=== PATIENT | female | born 1980 | race Caucasian/White ===

== ENCOUNTER 2019-11-06 14:17 | Emergency (ER) | payer OTHER ==
[~2019-11-06] VITALS: Ht 170.2 cm; Wt 61.0 kg
[~2019-11-06 14:17] MED LIST: NO HOME MEDS
[2019-11-06 14:33] VITALS: BP 123/73
[2019-11-06] MEDS ORDERED: ketorolac tromethamine 15mg/ml inj. IM ONE (15:10)
[2019-11-06 15:31] LABS: URINE HCG NEGATIVE (NEG)
[2019-11-06 15:40] LABS: BASOPHILS % (AUTO) 0.4 % (0-1); EOSINOPHILS # (AUTO) 0.1 X10'3 (0-0.9); EOSINOPHILS % (AUTO) 1.1 % (0-6); HEMATOCRIT 42.2 % (35.0-45.0); HEMOGLOBIN 14.2 g/dl (12.0-16.0); LYMPHOCYTES # (AUTO) 2.3 X10'3 (1.1-4.8); MEAN CORPUSCULAR HEMOGLOBIN 31.2 PG (27.0-31.0); MEAN CORPUSCULAR HGB CONC 33.6 g/dL (33.0-36.5); MEAN CORPUSCULAR VOLUME 92.9 FL (78-98); MEAN PLATELET VOLUME 9.1 FL (7.4-10.4); MONOCYTES # (AUTO) 0.4 X10'3 (0-0.9); MONOCYTES % (AUTO) 4.5 % (2-12); NEUTROPHILS # (AUTO) 5.8 X10'3 (1.8-7.7); PLATELET COUNT 235 X10'3 (140-440); RED BLOOD COUNT 4.55 X10'6 (4.20-5.60); RED CELL DISTRIBUTION WIDTH 13.1 % (11.5-14.5); WHITE BLOOD COUNT 8.6 X10'3 (4.5-11.0)
[2019-11-06 15:43] LABS: CLARITY,URINE CLEAR (Clear); COLOR,URINE YELLOW (Yellow); GLUCOSE, URINE NEGATIVE (Neg); KETONES,URINE NEGATIVE (Neg); LEUKOCYTE ESTERASE ,URINE NEGATIVE (Neg); NITRITES, URINE NEGATIVE (Neg); OCCULT BLOOD,URINE NEGATIVE (Neg); PROTEIN,URINE NEGATIVE (Neg); UROBILINOGEN,URINE 0.2 E.U/dL (0.2-1.0)
[2019-11-06 15:45] LABS: UA COLLECTION TYPE VOIDED
[2019-11-06 15:49] LABS: ALANINE AMINOTRANSFERASE 25 U/L (12-78); ALBUMIN 4.1 G/DL (3.4-5.0); ALBUMIN/GLOBULIN RATIO 1.5 (1.1-1.5); ALKALINE PHOSPHATASE 63 IU/L (46-116); ANION GAP 10 (8-16); ASPARTATE AMINO TRANSFERASE 21 U/L (10-37); BILIRUBIN,TOTAL 0.8 MG/DL (0.1-1.0); BLOOD UREA NITROGEN 10 MG/DL (7-18); BUN/CREATININE RATIO 15.4 (6.6-38.0); CALCIUM 8.8 MG/DL (8.5-10.1); CHLORIDE 105 MMOL/L (99-107); CREATININE 0.65 MG/DL (0.40-0.90); GLUCOSE 91 MG/DL (70-104); POTASSIUM 3.4 MMOL/L (3.5-5.1); SODIUM 143 MMOL/L (135-145); TOTAL CARBON DIOXIDE 28.3 MMOL/L (24-32); TOTAL PROTEIN 6.9 G/DL (6.4-8.2); eGFR > 90 ML/MIN
== END 2019-11-06 16:51 | disposition home or self-care (01) ==
LOC: MERGE 14:18 → ER 14:18
DX: N83.202 Unspecified ovarian cyst, left side (principal); F17.200 Nicotine dependence, unspecified, uncomplicated; Z90.710 Acquired absence of both cervix and uterus; Z88.2 Allergy status to sulfonamides
CPT/HCPCS: 36415; 76830; 76856; 80053; 81003; 81025; 85025; 96372; 99284; J1885

== ENCOUNTER 2020-08-17 12:26 | Inpatient (IN) | payer OTHER ==
[~2020-08-17] VITALS: Ht 170.2 cm; Wt 54.1 kg
[2020-08-17] MEDS ORDERED: acetylcysteine 200 MG/ml 4ml vial PO ONE (12:55)
[2020-08-17] MEDS ORDERED: ondansetron/PF 4mg/2ml inj IV ONE (13:00)
[2020-08-17] MEDS ORDERED: normal saline 1000ml 1,000 ML IV ONE (13:00)
[2020-08-17] MEDS ORDERED: proCHLORperazine 10 MG/2 ml inj IV ONE (13:10)
[2020-08-17] MEDS ORDERED: sodium bicarbonate (8.4%) 1 mEq/ml syringe IV ONE (13:10)
[2020-08-17 13:15] LABS: BASOPHILS % (AUTO) 0.6 % (0-1); EOSINOPHILS % (AUTO) 0.4 % (0-6); HEMATOCRIT 45.3 % (35.0-45.0); HEMOGLOBIN 15.1 g/dl (12.0-16.0); MEAN CORPUSCULAR HGB CONC 33.5 g/dL (33.0-36.5); MEAN CORPUSCULAR VOLUME 92.7 FL (78-98); MONOCYTES # (AUTO) 0.5 X10'3 (0-0.9); MONOCYTES % (AUTO) 5.4 % (2-12); NEUTROPHILS # (AUTO) 6.1 X10'3 (1.8-7.7); NEUTROPHILS % (AUTO) 70.6 % (42-75); PLATELET COUNT 263 X10'3 (140-440); RED BLOOD COUNT 4.88 X10'6 (4.20-5.60); RED CELL DISTRIBUTION WIDTH 13.7 % (11.5-14.5); WHITE BLOOD COUNT 8.7 X10'3 (4.5-11.0)
[2020-08-17] MEDS ORDERED: ACETYLCYSTEINE IV ONE ×4 (13:30→19:15)
[2020-08-17] MEDS ORDERED: DEXTROSE 5% IV ONE ×4 (13:30→19:15)
[2020-08-17] MEDS ORDERED: WATER IV ONE ×4 (13:30→19:15)
[2020-08-17 13:31] LABS: ALANINE AMINOTRANSFERASE 22 U/L (12-78); ALBUMIN 4.8 G/DL (3.4-5.0); ALBUMIN/GLOBULIN RATIO 1.7 (1.1-1.5); ALKALINE PHOSPHATASE 60 IU/L (46-116); ANION GAP 14 (8-16); ASPARTATE AMINO TRANSFERASE 17 U/L (10-37); BILIRUBIN,TOTAL 1.7 MG/DL (0.1-1.0); BLOOD UREA NITROGEN 15 MG/DL (7-18); BUN/CREATININE RATIO 17.9 (6.6-38.0); CHLORIDE 106 MMOL/L (99-107); CREATININE 0.84 MG/DL (0.40-0.90); GLUCOSE 185 MG/DL (70-104); POTASSIUM 3.2 MMOL/L (3.5-5.1); SODIUM 141 MMOL/L (135-145); TOTAL CARBON DIOXIDE 20.8 MMOL/L (24-32); TOTAL PROTEIN 7.7 G/DL (6.4-8.2); eGFR 75 ML/MIN
[2020-08-17 13:41] LABS: ETHANOL < 0.010 GM/DL (0.0-0.010)
[2020-08-17 13:43] LABS: ACETAMINOPHEN 211.7 UG/ML (10-30)
--- NOTE | 2020-08-17 13:46 | NUR ---
Spoke with poison control- [place] bi-carb for QRS prolong Give mucomyst at 1 hour, 4 hour and 16 hour. If patient starts to have tremors or seizure administer benzodiazepines
[2020-08-17] MEDS ORDERED: HYDR-3972 PO (14:53)
--- NOTE | 2020-08-17 14:58 | NUR ---
PT TOLD THIS RN SHE TOOK BENADRYL PM, TYLENOL, AND NORCO AT 0930 IN ATTEMPT TO KILL HERSELF "THINGS HAVE BEEN REALLY HARD LATELY."
[2020-08-17] MEDS ORDERED: mag hydrox/Alum hydrox/simeth 30ml oral suspension PO PRN (15:15)
[2020-08-17] MEDS ORDERED: magnesium hydroxide 30ml (MOM) UD suspension PO PRN (15:15)
[2020-08-17] MEDS ORDERED: ondansetron/PF 4mg/2ml inj IV PRN (15:15)
[2020-08-17] MEDS ORDERED: ipratropium/albuterol 3ml nebule NEB PRN (15:15)
[2020-08-17] MEDS ORDERED: acetaminophen 325mg tablet PO PRN (15:15)
[2020-08-17] MEDS ORDERED: magnesium 2GM in 50ml NS 50 ML IV PRN (15:15)
[2020-08-17] MEDS ORDERED: potassium Cl 40MEQ/1/2NS 520ml 520 ML IV PRN ×2 (15:15)
[2020-08-17] MEDS ORDERED: magnesium 4gm in 100ml NS 100 ML IV PRN (15:15)
[2020-08-17] MEDS ORDERED: potassium Cl 20 mEq SR tablet PO PRN (15:15)
[2020-08-17] MEDS: normal saline 1000ml 1,000 ML IV SCH ×2 (15:15→21:36)
--- NOTE | 2020-08-17 15:15 | NUR ---
Spoke again w/ Poison control recommends replacing Mg and K for prolonged QTC. Dr. Reza notified of this now, we will get another EKG and then "replace per the protocol from the ICU doctor."
[2020-08-17 15:34] LABS: URINE HCG NEGATIVE (NEG)
--- NOTE | 2020-08-17 15:34 | NUR ---
Pt is awake and alert, second EKG done, QT 499
[2020-08-17 15:37] LABS: COLOR,URINE YELLOW (Yellow); GLUCOSE, URINE NEGATIVE (Neg); KETONES,URINE >=80 mg/dl (Neg); LEUKOCYTE ESTERASE ,URINE NEGATIVE (Neg); NITRITES, URINE NEGATIVE (Neg); OCCULT BLOOD,URINE NEGATIVE (Neg); PH,URINE 6.5 (4.8-8.0); PROTEIN,URINE TRACE mg/dl (Neg); UROBILINOGEN,URINE 0.2 E.U/dL (0.2-1.0)
[2020-08-17 15:39] LABS: UA COLLECTION TYPE CLN CATCH MIDSTREAM
[2020-08-17 15:40] LABS: URINE AMPHETAMINE SCREEN NEGATIVE (Neg); URINE BARBITUATE SCREEN NEGATIVE (Neg); URINE BENZODIAZEPINES SCREEN NEGATIVE (Neg); URINE CANNABINOID SCREEN POSITIVE (Neg); URINE COCAINE SCREEN NEGATIVE (Neg); URINE METHADONE SCREEN NEGATIVE (Neg); URINE OPIATE SCREEN POSITIVE (Neg); URINE PHENCYCLIDINE SCREEN NEGATIVE (Neg)
[2020-08-17 15:43] LABS: CLARITY,URINE SLIGHTLY CLOUDY (Clear)
[2020-08-17 15:44] LABS: BACTERIA,URINE 2+ /HPF (Neg); RBC,URINE 0-2 /HPF (0-2); SQUAMOUS EPITHELIAL CELL,UR MANY /LPF (FEW); WBC,URINE 0-4 /HPF (0-4)
--- NOTE | 2020-08-17 16:13 | NUR ---
RED INCONTINENCE MOISTURE ENTIRE PERINEUM AND UNDER RIGHT BREAST.
--- NOTE | 2020-08-17 17:03 | NUR ---
Patient in room ED 1. I have received report from Lynnette GLASS and had the opportunity to ask questions and assume patient care.
--- NOTE | 2020-08-17 17:08 | NUR ---
TELEPHONE REPORT TO QUAN ARCE ON PCU. PATIENT PREPARING FOR TRANSFER TO FLOOR WITH SITTER AT THE BEDSIDE.
[2020-08-17 18:00] VITALS: BP 119/76
[2020-08-17 18:18] LABS: ALANINE AMINOTRANSFERASE 21 U/L (12-78); ALBUMIN/GLOBULIN RATIO 1.4 (1.1-1.5); ALKALINE PHOSPHATASE 54 IU/L (46-116); ANION GAP 15 (8-16); ASPARTATE AMINO TRANSFERASE 19 U/L (10-37); BILIRUBIN,TOTAL 1.4 MG/DL (0.1-1.0); BLOOD UREA NITROGEN 13 MG/DL (7-18); BUN/CREATININE RATIO 19.1 (6.6-38.0); CALCIUM 7.8 MG/DL (8.5-10.1); CHLORIDE 108 MMOL/L (99-107); CREATININE 0.68 MG/DL (0.40-0.90); GLUCOSE 112 MG/DL (70-104); POTASSIUM 3.7 MMOL/L (3.5-5.1); SODIUM 144 MMOL/L (135-145); TOTAL CARBON DIOXIDE 21.2 MMOL/L (24-32); TOTAL PROTEIN 6.9 G/DL (6.4-8.2); eGFR > 90 ML/MIN
[2020-08-17 18:27] LABS: ACETAMINOPHEN 101.6 UG/ML (10-30)
--- NOTE | 2020-08-17 18:42 | NUR ---
Patient in room PCU 3027. I have received report from Erin GLASS and had the opportunity to ask questions and assume patient care.
--- NOTE | 2020-08-17 18:45 | NUR ---
Problems reprioritized. Patient report given, questions answered & plan of care reviewed with Kenisha GLASS.
--- NOTE | 2020-08-17 18:51 | NUR ---
PAGER ID: [phone] MESSAGE: Stacia Skinner RM [id number] Critical Acetaminophen level of 101.6 but down from previous level 211.7. Also can we order another salicylate level, AST, ALT, INR, & Acetaminophen level prior to the end of last Acetylcysteien dose? Kenisha 1326
--- NOTE | 2020-08-17 18:59 | NUR ---
Patient in room PCU 3027. I have received report from Israel GLASS and had the opportunity to ask questions and assume patient care.
[2020-08-17] MEDS: K and/or MAG REPLACEMENT MC SCH (20:00)
[2020-08-17 22:00] VITALS: BP 128/76
[2020-08-17 22:11] LABS: ALANINE AMINOTRANSFERASE 19 U/L (12-78); ALBUMIN 3.6 G/DL (3.4-5.0); ALBUMIN/GLOBULIN RATIO 1.5 (1.1-1.5); ALKALINE PHOSPHATASE 48 IU/L (46-116); ANION GAP 11 (8-16); ASPARTATE AMINO TRANSFERASE 16 U/L (10-37); BILIRUBIN,TOTAL 1.5 MG/DL (0.1-1.0); BLOOD UREA NITROGEN 11 MG/DL (7-18); BUN/CREATININE RATIO 18.3 (6.6-38.0); CALCIUM 7.7 MG/DL (8.5-10.1); CHLORIDE 108 MMOL/L (99-107); GLUCOSE 99 MG/DL (70-104); POTASSIUM 3.4 MMOL/L (3.5-5.1); SODIUM 141 MMOL/L (135-145); TOTAL CARBON DIOXIDE 22.5 MMOL/L (24-32); eGFR > 90 ML/MIN
[2020-08-17 22:31] LABS: ACETAMINOPHEN 128.4 UG/ML (10-30)
[2020-08-17] MEDS: potassium Cl 20 mEq SR tablet PO PRN (22:31)
--- NOTE | 2020-08-17 22:37 | NUR ---
promotional table spacer PAGER ID: [phone] MESSAGE: Patient Stacia Russell RM [id number] Patient has critical Acetaminophen level of 128.4. Her last level was 101.6. She is currently on a Acetylcysteine drip. Thank you! Kenisha GLASS ext. [phone]
[2020-08-18 01:51] LABS: ALANINE AMINOTRANSFERASE 19 U/L (12-78); ALBUMIN 3.3 G/DL (3.4-5.0); ALBUMIN/GLOBULIN RATIO 1.4 (1.1-1.5); ALKALINE PHOSPHATASE 45 IU/L (46-116); ANION GAP 11 (8-16); ASPARTATE AMINO TRANSFERASE 18 U/L (10-37); BILIRUBIN,TOTAL 1.5 MG/DL (0.1-1.0); BLOOD UREA NITROGEN 8 MG/DL (7-18); BUN/CREATININE RATIO 12.1 (6.6-38.0); CALCIUM 8.2 MG/DL (8.5-10.1); CHLORIDE 109 MMOL/L (99-107); CREATININE 0.66 MG/DL (0.40-0.90); GLUCOSE 86 MG/DL (70-104); SODIUM 141 MMOL/L (135-145); TOTAL CARBON DIOXIDE 21.4 MMOL/L (24-32); TOTAL PROTEIN 5.6 G/DL (6.4-8.2); eGFR > 90 ML/MIN
[2020-08-18 01:57] LABS: POTASSIUM 3.1 MMOL/L (3.5-5.1)
[2020-08-18 02:00] VITALS: BP 119/76
[2020-08-18 02:06] LABS: ACETAMINOPHEN 51.3 UG/ML (10-30)
[2020-08-18] MEDS: potassium Cl 20 mEq SR tablet PO PRN (02:15)
--- NOTE | 2020-08-18 03:46 | NUR ---
[place] documentation: I have reviewed and agree with all interventions, assessments performed and documented by Lucia GLASS. [place] Medication Administration: For this medication-pass time frame, all medication were reviewed, dispensed, administered and documented per hospital policy by Lucia GLASS.
[2020-08-18 05:57] LABS: BASOPHILS % (AUTO) 0.5 % (0-1); EOSINOPHILS % (AUTO) 0.5 % (0-6); HEMATOCRIT 36.5 % (35.0-45.0); HEMOGLOBIN 12.4 g/dl (12.0-16.0); LYMPHOCYTES # (AUTO) 2.9 X10'3 (1.1-4.8); LYMPHOCYTES % (AUTO) 30.6 % (21-51); MEAN CORPUSCULAR HEMOGLOBIN 31.5 PG (27.0-31.0); MEAN CORPUSCULAR VOLUME 92.5 FL (78-98); MEAN PLATELET VOLUME 9.2 FL (7.4-10.4); MONOCYTES # (AUTO) 0.4 X10'3 (0-0.9); MONOCYTES % (AUTO) 3.8 % (2-12); NEUTROPHILS # (AUTO) 6.2 X10'3 (1.8-7.7); NEUTROPHILS % (AUTO) 64.6 % (42-75); PLATELET COUNT 184 X10'3 (140-440); RED BLOOD COUNT 3.94 X10'6 (4.20-5.60); RED CELL DISTRIBUTION WIDTH 13.7 % (11.5-14.5); WHITE BLOOD COUNT 9.6 X10'3 (4.5-11.0)
[2020-08-18 06:06] LABS: ACETAMINOPHEN 13.1 UG/ML (10-30); ALANINE AMINOTRANSFERASE 17 U/L (12-78); ALBUMIN 3.2 G/DL (3.4-5.0); ALBUMIN/GLOBULIN RATIO 1.4 (1.1-1.5); ALKALINE PHOSPHATASE 43 IU/L (46-116); ANION GAP 8 (8-16); ASPARTATE AMINO TRANSFERASE 13 U/L (10-37); BILIRUBIN,TOTAL 1.6 MG/DL (0.1-1.0); BLOOD UREA NITROGEN 8 MG/DL (7-18); BUN/CREATININE RATIO 11.9 (6.6-38.0); CALCIUM 7.7 MG/DL (8.5-10.1); CHLORIDE 110 MMOL/L (99-107); CREATININE 0.67 MG/DL (0.40-0.90); GLUCOSE 88 MG/DL (70-104); MAGNESIUM 1.8 MG/DL (1.5-2.4); POTASSIUM 3.5 MMOL/L (3.5-5.1); SODIUM 140 MMOL/L (135-145); TOTAL CARBON DIOXIDE 22.2 MMOL/L (24-32); TOTAL PROTEIN 5.5 G/DL (6.4-8.2); eGFR > 90 ML/MIN
--- NOTE | 2020-08-18 06:14 | NUR ---
Problems reprioritized. Patient report given, questions answered & plan of care reviewed with Erin GLASS.
--- NOTE | 2020-08-18 06:29 | NUR ---
Patient in room PCU 3027. I have received report from Kenisha GLASS and Lucia GLASS and had the opportunity to ask questions and assume patient care.
[2020-08-18 07:00] VITALS: BP 94/55
[2020-08-18] MEDS: K and/or MAG REPLACEMENT MC SCH (08:00)
[2020-08-18 10:17] LABS: ACETAMINOPHEN 3.5 UG/ML (10-30); ALANINE AMINOTRANSFERASE 18 U/L (12-78); ALBUMIN 3.2 G/DL (3.4-5.0); ALBUMIN/GLOBULIN RATIO 1.5 (1.1-1.5); ALKALINE PHOSPHATASE 42 IU/L (46-116); ANION GAP 8 (8-16); ASPARTATE AMINO TRANSFERASE 13 U/L (10-37); BILIRUBIN,TOTAL 1.7 MG/DL (0.1-1.0); BLOOD UREA NITROGEN 6 MG/DL (7-18); BUN/CREATININE RATIO 8.6 (6.6-38.0); CALCIUM 7.9 MG/DL (8.5-10.1); CHLORIDE 112 MMOL/L (99-107); GLUCOSE 88 MG/DL (70-104); POTASSIUM 3.9 MMOL/L (3.5-5.1); SODIUM 142 MMOL/L (135-145); TOTAL CARBON DIOXIDE 21.7 MMOL/L (24-32); TOTAL PROTEIN 5.4 G/DL (6.4-8.2); eGFR > 90 ML/MIN
[2020-08-18 11:00] VITALS: BP 104/61
[2020-08-18 13:19] LABS: ALANINE AMINOTRANSFERASE 18 U/L (12-78); ALBUMIN 3.2 G/DL (3.4-5.0); ALBUMIN/GLOBULIN RATIO 1.4 (1.1-1.5); ALKALINE PHOSPHATASE 43 IU/L (46-116); ANION GAP 2 (8-16); ASPARTATE AMINO TRANSFERASE 15 U/L (10-37); BILIRUBIN,TOTAL 1.9 MG/DL (0.1-1.0); BLOOD UREA NITROGEN 6 MG/DL (7-18); BUN/CREATININE RATIO 9.1 (6.6-38.0); CALCIUM 8.2 MG/DL (8.5-10.1); CHLORIDE 110 MMOL/L (99-107); CREATININE 0.66 MG/DL (0.40-0.90); GLUCOSE 99 MG/DL (70-104); POTASSIUM 3.9 MMOL/L (3.5-5.1); SODIUM 135 MMOL/L (135-145); TOTAL CARBON DIOXIDE 23.3 MMOL/L (24-32); TOTAL PROTEIN 5.5 G/DL (6.4-8.2); eGFR > 90 ML/MIN
--- NOTE | 2020-08-18 14:55 | NUR ---
Patient stable for discharge per MD order. All discharge information and education reviewed with patient before signing necessary paperwork. No new Rx. All patient belongings packed up and sent with patient who was picked up by her mother out front.
== END 2020-08-18 14:50 | disposition home or self-care (01) | DRG 918 ==
LOC: ER 12:26 → ED HOLD 15:15 → PCU 3S 17:15
PROVIDERS: ADMIT Family Medicine; ATTEND Family Medicine
DX: T39.1X2A Poisoning by 4-Aminophenol derivatives, intentional self-harm, initial encounter (principal); R17 Unspecified jaundice; F32.9 Major depressive disorder, single episode, unspecified; F12.90 Cannabis use, unspecified, uncomplicated; G89.29 Other chronic pain; E87.6 Hypokalemia; T45.0X2A Poisoning by antiallergic and antiemetic drugs, intentional self-harm, initial encounter; F43.21 Adjustment disorder with depressed mood; F17.210 Nicotine dependence, cigarettes, uncomplicated; Y92.89 Other specified places as the place of occurrence of the external cause; Z90.710 Acquired absence of both cervix and uterus; Z98.891 History of uterine scar from previous surgery; Z88.2 Allergy status to sulfonamides; Z98.51 Tubal ligation status; Z79.899 Other long term (current) drug therapy; Z71.6 Tobacco abuse counseling
CPT/HCPCS: 36415; 80053; 80305; 80320; 80329; 81001; 81025; 83735; 84443; 85025; 85610; 87081; 93005; 94760; 96365; 96375; 99285; G0378; J0132; J0780; J2405; J7030; J7060; J7070

== ENCOUNTER 2021-01-03 10:27 | Emergency (ER) | payer OTHER ==
[~2021-01-03] VITALS: Ht 170.2 cm; Wt 63.6 kg
[2021-01-03 10:57] LABS: BASOPHILS # (AUTO) 0.1 X10'3 (0-0.2); BASOPHILS % (AUTO) 0.8 % (0-1); EOSINOPHILS # (AUTO) 0.1 X10'3 (0-0.9); HEMATOCRIT 43.3 % (35.0-45.0); HEMOGLOBIN 14.7 g/dl (12.0-16.0); LYMPHOCYTES # (AUTO) 2.2 X10'3 (1.1-4.8); LYMPHOCYTES % (AUTO) 24.6 % (21-51); MEAN CORPUSCULAR HEMOGLOBIN 31.6 PG (27.0-31.0); MEAN CORPUSCULAR HGB CONC 33.8 g/dL (33.0-36.5); MEAN CORPUSCULAR VOLUME 93.4 FL (78-98); MEAN PLATELET VOLUME 8.3 FL (7.4-10.4); MONOCYTES # (AUTO) 0.4 X10'3 (0-0.9); MONOCYTES % (AUTO) 4.8 % (2-12); NEUTROPHILS # (AUTO) 6.2 X10'3 (1.8-7.7); NEUTROPHILS % (AUTO) 68.8 % (42-75); PLATELET COUNT 226 X10'3 (140-440); RED BLOOD COUNT 4.64 X10'6 (4.20-5.60); RED CELL DISTRIBUTION WIDTH 13.9 % (11.5-14.5)
[2021-01-03 11:09] LABS: ALANINE AMINOTRANSFERASE 39 U/L (12-78); ALBUMIN 4.2 G/DL (3.4-5.0); ALBUMIN/GLOBULIN RATIO 1.5 (1.1-1.5); ALKALINE PHOSPHATASE 66 IU/L (46-116); ANION GAP 9 (8-16); ASPARTATE AMINO TRANSFERASE 25 U/L (10-37); BLOOD UREA NITROGEN 12 MG/DL (7-18); BUN/CREATININE RATIO 16.7 (6.6-38.0); CALCIUM 8.6 MG/DL (8.5-10.1); CHLORIDE 104 MMOL/L (99-107); CREATININE 0.72 MG/DL (0.40-0.90); GLUCOSE 110 MG/DL (70-104); LIPASE 173 U/L (73-393); POTASSIUM 4.2 MMOL/L (3.5-5.1); SODIUM 139 MMOL/L (135-145); TOTAL CARBON DIOXIDE 26.4 MMOL/L (24-32); eGFR 90 ML/MIN
[2021-01-03 12:09] LABS: CLARITY,URINE CLEAR (Clear); COLOR,URINE YELLOW (Yellow); GLUCOSE, URINE NEGATIVE (Neg); KETONES,URINE NEGATIVE (Neg); LEUKOCYTE ESTERASE ,URINE NEGATIVE (Neg); NITRITES, URINE NEGATIVE (Neg); OCCULT BLOOD,URINE NEGATIVE (Neg); PROTEIN,URINE NEGATIVE (Neg); UROBILINOGEN,URINE 0.2 E.U/dL (0.2-1.0)
[2021-01-03 12:16] LABS: UA COLLECTION TYPE CLN CATCH MIDSTREAM
[2021-01-03] MEDS ORDERED: ketorolac tromethamine 15mg/ml inj. IM ONE (12:20)
[2021-01-03 13:13] VITALS: BP 113/80
== END 2021-01-03 14:34 | disposition home or self-care (01) ==
LOC: ER 10:28
DX: R10.32 Left lower quadrant pain (principal); G89.29 Other chronic pain; Z88.2 Allergy status to sulfonamides; Z79.899 Other long term (current) drug therapy; Z98.890 Other specified postprocedural states; Z98.51 Tubal ligation status
CPT/HCPCS: 36415; 74176; 76856; 80053; 81003; 83690; 85025; 93976; 96372; 99285; J1885